=== PATIENT | male | born 1985 | race Caucasian/White ===

== ENCOUNTER → 2024-12-13 18:50 | Outpatient (CLI) | payer BC, SELFPAY ==
--- NOTE | 2024-12-13 18:53 | DI.RAD.S_ITS ---
PROCEDURE: XR TIBIA FUBULA RT 2V INDICATIONS: Fall TECHNIQUE: 2 views of the tibia and fibula were acquired. COMPARISON: None. FINDINGS AND IMPRESSION: No displaced fracture of the tibia or fibula. Ankle findings are separately dictated. If there is high concern for occult injury, consider repeat radiography or cross-sectional imaging. Dictated by: Kameron Elizalde M.D. on 12/13/2024 at 22:11 Approved by: Kameron Elizalde M.D. on 12/13/2024 at 22:11
--- NOTE | 2024-12-13 18:53 | DI.RAD.S_ITS ---
PROCEDURE: XR ANKLE RT MIN 3V INDICATIONS: Fall TECHNIQUE: 3 views of the ankle were acquired. COMPARISON: None. FINDINGS AND IMPRESSION: Small bone fragments are seen dorsal to talonavicular joint, correlate for location of tenderness. These could represent small avulsion fragments. No suspicious calcifications elsewhere. Dictated by: Kameron Elizalde M.D. on 12/13/2024 at 22:09 Approved by: Kameron Elizalde M.D. on 12/13/2024 at 22:10
--- NOTE | 2024-12-13 18:53 | DI.RAD.S_ITS ---
PROCEDURE: XR FOOT RT MIN 3V INDICATIONS: Fall TECHNIQUE: 3 views of the foot were acquired. COMPARISON: None. FINDINGS AND IMPRESSION: Tiny possible avulsion fragments dorsal to the talonavicular joint. Correlate with location of tenderness. No dislocation. Tiny calcaneal enthesophyte. No suspicious soft tissue calcifications. If there is high concern for occult injury, consider repeat radiography or cross-sectional imaging. Dictated by: Kameron Elizalde M.D. on 12/13/2024 at 22:10 Approved by: Kameron Elizalde M.D. on 12/13/2024 at 22:11
== END ==
LOC: RAD 18:52
PROVIDERS: Referring Provider Nurse Practitioner Family; Visit Provider Nurse Practitioner Family
DX: S99.921A Unspecified injury of right foot, initial encounter (principal); W10.9XXA Fall (on) (from) unspecified stairs and steps, initial encounter
CPT/HCPCS: 73590; 73610; 73630